=== PATIENT | female | born 1970 | race Caucasian/White ===

== ENCOUNTER 2023-10-14 10:26 | Emergency (ER) | payer SELFPAY ==
[~2023-10-14] VITALS: Ht 170.2 cm; Wt 76.5 kg
[2023-10-14] MEDS ORDERED: ONDANSETRON 4 MG TAB ODT SL ONE (11:45)
[2023-10-14 12:36] LABS: AMPHETAMINES, URINE POSITIVE (NEGATIVE); BARBITURATES, URINE NEGATIVE (NEGATIVE); BENZODIAZEPINE, URINE NEGATIVE (NEGATIVE); BUPRENORPHINE, URINE NEGATIVE (NEGATIVE); CANNABINOID, URINE POSITIVE (NEGATIVE); COCAINE, URINE NEGATIVE (NEGATIVE); ECSTASY, URINE NEGATIVE (NEGATIVE); FENTANYL, URINE NEGATIVE (NEGATIVE); METHADONE, URINE NEGATIVE (NEGATIVE); OPIATES, URINE NEGATIVE (NEGATIVE); OXYCODONE, URINE NEGATIVE (NEGATIVE); PHENCYCLIDINE, URINE NEGATIVE (NEGATIVE)
[2023-10-14 15:08] VITALS: BP 149/82
== END 2023-10-14 15:08 | disposition home or self-care (01) ==
LOC: ED 10:26
PROVIDERS: Emergency Medicine
DX: F15.129 Other stimulant abuse with intoxication, unspecified (principal); F25.9 Schizoaffective disorder, unspecified; F10.90 Alcohol use, unspecified, uncomplicated; Z91.013 Allergy to seafood
CPT/HCPCS: 80307